=== PATIENT | female | born 1990 | race Hispanic/Latino ===

== ENCOUNTER 2022-01-14 09:25 | Emergency (ER) | payer OTHER ==
[~2022-01-14] VITALS: Ht 167.6 cm; Wt 99.8 kg
[2022-01-14] MEDS ORDERED: IBUP200C27 PO (09:34)
[2022-01-14] MEDS ORDERED: NS 1,000 ML IV ONE (10:15)
[2022-01-14] MEDS ORDERED: KETOROLAC 30 MG/ML 1ML VIAL IV ONE (10:20)
[2022-01-14 10:55] LABS: BASO # 0.1 10^3/uL (0.0-0.2); BASO % 0.4 % (0.0-1.0); EOS % 0.1 % (0.0-3.0); HEMATOCRIT 39.9 % (36.0-47.0); HEMOGLOBIN 12.8 g/dl (12.0-15.5); LYMPH # 1.9 10^3/uL (1.5-5.0); MEAN CORPUSCULAR HEMOGLOBIN 27.5 pg (27.0-33.0); MEAN CORPUSCULAR HGB CONC 32.1 g/dl (32.0-36.5); MEAN CORPUSCULAR VOLUME 85.6 fl (80.0-96.0); MONO # 0.7 10^3/uL (0.0-0.8); MONO % 4.9 % (2.0-8.0); NEUTROPHILS % 80.1 % (36.0-66.0); PLATELET COUNT, AUTOMATED 339 10^3/uL (150-450); RED BLOOD COUNT 4.66 10^6/uL (4.00-5.40); WHITE BLOOD COUNT 13.7 10^3/uL (4.0-10.0)
[2022-01-14 11:40] LABS: BLOOD UREA NITROGEN 9 MG/DL (7-18); CALCIUM LEVEL 9.4 MG/DL (8.5-10.1); CARBON DIOXIDE LEVEL 26 MEQ/L (21-32); CHLORIDE LEVEL 106 MEQ/L (98-107); CREATININE FOR GFR 0.86 MG/DL (0.55-1.30); GLOMERULAR FILTRATION RATE > 60.0 (>60); GLUCOSE, FASTING 99 MG/DL (70-100); POTASSIUM SERUM 3.8 MEQ/L (3.5-5.1); SODIUM LEVEL 137 MEQ/L (136-145); THYROID STIMULATING HORMONE 0.792 uIU/ML (0.358-3.740)
[2022-01-14 12:27] VITALS: BP 118/60
== END 2022-01-14 12:41 | disposition home or self-care (01) ==
LOC: M ED 09:25
DX: J06.9 Acute upper respiratory infection, unspecified (principal); R55 Syncope and collapse; J02.9 Acute pharyngitis, unspecified
CPT/HCPCS: 80048; 84443; 84484; 85025; 87486; 87581; 87633; 87798; 87880; 93005; 96361; 96374; 99284; J1885

== ENCOUNTER → 2023-08-04 | Outpatient (CLI) | payer OTHER ==
[~2023-08-04] MED LIST: IBUP200C27 PO
[2023-08-04 15:45] LABS: HEMATOCRIT 35.2 % (36.0-47.0); HEMOGLOBIN 11.4 g/dl (12.0-15.5); MEAN CORPUSCULAR HEMOGLOBIN 28.1 pg (27.0-33.0); MEAN CORPUSCULAR HGB CONC 32.4 g/dl (32.0-36.5); MEAN CORPUSCULAR VOLUME 86.7 fl (80.0-96.0); PLATELET COUNT, AUTOMATED 348 10^3/uL (150-450); RED BLOOD COUNT 4.06 10^6/uL (4.00-5.40); WHITE BLOOD COUNT 8.1 10^3/uL (4.0-10.0)
[2023-08-04 16:23] LABS: HIV 1&2 SCREEN NEGATIVE (NEGATIVE)
[2023-08-04 16:30] LABS: HEPATITIS C VIRUS ABY INDEX < 0.02 INDEX (<0.8)
[2023-08-04 17:03] LABS: GC DNA AMPLIFICATION NEGATIVE (NEGATIVE)
== END ==
LOC: M PLALAB 12:15
PROVIDERS: ATTEND Advanced Practice Midwife
DX: Z34.81 Encounter for supervision of other normal pregnancy, first trimester (principal)

== ENCOUNTER → 2023-09-24 | Outpatient (REF) | payer OTHER | LOC: M SFHCWAGY 12:17 | PROVIDERS: ATTEND Specialist | DX: R82.90 Unspecified abnormal findings in urine (principal) ==

== ENCOUNTER → 2023-10-04 | Outpatient (CLI) | payer OTHER | LOC: M WHC 09:44 | PROVIDERS: ATTEND Specialist | DX: Z34.82 Encounter for supervision of other normal pregnancy, second trimester (principal); Z3A.20 20 weeks gestation of pregnancy ==

== ENCOUNTER → 2023-11-08 | Outpatient (CLI) | payer OTHER ==
[2023-11-08 13:16] LABS: HEMATOCRIT 34.3 % (36.0-47.0); MEAN CORPUSCULAR HEMOGLOBIN 28.9 pg (27.0-33.0); MEAN CORPUSCULAR HGB CONC 32.1 g/dl (32.0-36.5); PLATELET COUNT, AUTOMATED 349 10^3/uL (150-450); RED BLOOD COUNT 3.81 10^6/uL (4.00-5.40); WHITE BLOOD COUNT 11.2 10^3/uL (4.0-10.0)
[2023-11-08 13:41] LABS: GLUCOSE CHALLENGE TEST 1 HOUR 101 MG/DL (LESS THAN 140)
[2023-11-08 14:16] LABS: HIV 1&2 SCREEN NEGATIVE (NEGATIVE)
[2023-11-08 14:24] LABS: HEPATITIS C VIRUS ABY INDEX < 0.02 INDEX (<0.8)
[2023-11-08 15:42] LABS: GC DNA AMPLIFICATION NEGATIVE (NEGATIVE)
== END ==
LOC: M PLALAB 08:36
PROVIDERS: ATTEND Obstetrics & Gynecology
DX: O99.212 Obesity complicating pregnancy, second trimester (principal); Z3A.00 Weeks of gestation of pregnancy not specified

== ENCOUNTER → 2023-11-18 | Outpatient (CLI) | payer OTHER | LOC: M WHC 15:12 | PROVIDERS: ATTEND Obstetrics & Gynecology | DX: O99.212 Obesity complicating pregnancy, second trimester (principal); O32.1XX0 Maternal care for breech presentation, not applicable or unspecified; Z3A.26 26 weeks gestation of pregnancy ==

== ENCOUNTER → 2024-01-24 | Outpatient (REF) | payer OTHER | LOC: M SFHCWAGY 13:03 | PROVIDERS: ATTEND Specialist | DX: Z34.93 Encounter for supervision of normal pregnancy, unspecified, third trimester (principal); Z3A.36 36 weeks gestation of pregnancy ==

== ENCOUNTER 2024-01-28 11:53 | Emergency (ER) | payer OTHER ==
[~2024-01-28] VITALS: Ht 167.6 cm; Wt 99.8 kg
[2024-01-28] MEDS ORDERED: PREN1CHW6 PO (12:06)
[2024-01-28] MEDS ORDERED: ROBI1CAP PO (12:06)
[2024-01-28 14:04] VITALS: BP 137/83; TEMP 97.3; O2SAT 99
[2024-02-01] MEDS ORDERED: OMEP-173 PO (07:28)
== END 2024-01-28 15:41 | disposition home or self-care (01) ==
LOC: M ED 11:53
DX: O98.519 Other viral diseases complicating pregnancy, unspecified trimester (principal); B34.8 Other viral infections of unspecified site; Z3A.00 Weeks of gestation of pregnancy not specified; Z11.52 Encounter for screening for COVID-19

== ENCOUNTER 2024-02-15 05:43 | Inpatient (IN) | payer OTHER ==
[2024-02-15] VITALS (12 sets, daily range): BP systolic 93–126; BP diastolic 53–73; TEMP 96.9; O2SAT 97–100
[~2024-02-15] VITALS: Ht 167.6 cm; Wt 101.8 kg
[~2024-02-15 05:43] MED LIST changes: +OMEP-173 PO; +PREN1CHW6 PO; +ROBI1CAP PO
[2024-02-15] MEDS ORDERED: HOME MED LIST COMPLETE! XX SCH (05:55)
[2024-02-15 06:25] LABS: HEMATOCRIT 32.8 % (36.0-47.0); HEMOGLOBIN 10.6 g/dl (12.0-15.5); MEAN CORPUSCULAR HEMOGLOBIN 26.8 pg (27.0-33.0); MEAN CORPUSCULAR HGB CONC 32.3 g/dl (32.0-36.5); PLATELET COUNT, AUTOMATED 375 10^3/uL (150-450); RED BLOOD COUNT 3.95 10^6/uL (4.00-5.40); WHITE BLOOD COUNT 9.9 10^3/uL (4.0-10.0)
[2024-02-15] MEDS: LACTATED RINGER'S 1000 ML IV STA (06:28)
[2024-02-15] MEDS: LR 1,000 ML IV SCH ×2 (06:50→08:40)
[2024-02-15] MEDS: ceFAZolin SOD 2 GM in IV 1 EA IV ONE (07:19)
[2024-02-15] MEDS: BICITRA 30ML SOLN UDC PO ONE (07:19)
[2024-02-15 07:35] LABS: HEPATITIS C VIRUS ABY INDEX 0.02 INDEX (<0.8)
[2024-02-15] MEDS ORDERED: fentaNYL 100 MCG/2 ML INJECTION As Ordered ONE (08:10)
[2024-02-15] MEDS ORDERED: MORPHINE PRES-FREE INJ 10 MG/10 ML VIAL As Ordered ONE (08:10)
[2024-02-15] MEDS ORDERED: PHENYLephrine 500MCG 5ML (100MCG/ML) SYRINGE As Ordered ONE (08:10)
[2024-02-15] MEDS ORDERED: OXYTOCIN 30UNITS IN 0.9% NaCl 500ML IV BAG As Ordered ONE (08:10)
[2024-02-15] MEDS ORDERED: ePHEDrine INJ 50MG/ML 1ML VIAL As Ordered ONE (08:10)
[2024-02-15 08:18] LABS: CORD GAS ABE V -5.5; CORD GAS HCO3 V 21.1 MMOL/L; CORD GAS O2 SAT V 75.8 %; CORD GAS PH V 7.289 UNITS; CORD GAS PO2 V 34.3 mmHg; CORD GAS SBC V 19.5 MMOL/L; CORD GAS TCO2 V 22.5 MMOL/L
[2024-02-15] MEDS ORDERED: KETOROLAC 60MG 2ML VIAL As Ordered ONE (08:19)
[2024-02-15 08:21] LABS: CORD GAS ABE A -4.9; CORD GAS HCO3 A 24.6 MMOL/L; CORD GAS O2 SAT A 53.6 %; CORD GAS PCO2 A 67.7 mmHg; CORD GAS PH A 7.179 UNITS; CORD GAS PO2 A 25.7 mmHg; CORD GAS SBC A 19.5 MMOL/L; CORD GAS TCO2 A 26.7 MMOL/L
[2024-02-15] MEDS ORDERED: RHOGAM 300MCG (1500IU) INJ IM SCH (08:40)
[2024-02-15] MEDS: SLF 3 ML SYR IV SCH (09:00)
[2024-02-15] MEDS: PRENATAL VITAMINS CHEWABLE TABLET PO SCH (09:00)
[2024-02-15] MEDS ORDERED: diphenhydrAMINE 50MG/ML VIAL IV PRN (09:05)
[2024-02-15] MEDS ORDERED: HYDROMORPHONE HCL 0.5 MG/ 0.5 ML SYRINGE IV PRN (09:05)
[2024-02-15] MEDS ORDERED: MEPERIDINE 25 MG/ML 1ML VIAL IV PRN (09:05)
[2024-02-15] MEDS ORDERED: fentaNYL 100 MCG/2 ML INJECTION IV PRN (09:05)
[2024-02-15] MEDS ORDERED: ONDANSETRON 4MG 2ML VIAL IV PRN (09:05)
[2024-02-15] MEDS ORDERED: **NOTE PATIENT COMMENT** MISC XX SCH (09:05)
[2024-02-15] MEDS ORDERED: NALOXONE INJ 0.4MG/1ML VIAL IV PRN ×2 (09:05)
[2024-02-15] MEDS ORDERED: oxyCODONE 5MG TAB PO PRN (09:05)
[2024-02-15] MEDS: METOCLOPRAMIDE INJ 10MG/2ML VIAL IV PRN (11:08)
[2024-02-15] MEDS: KETOROLAC 30 MG/ML 1ML VIAL IV SCH (15:07)
[2024-02-15] MEDS: ONDANSETRON 4MG 2ML VIAL IV PRN (15:22)
[2024-02-15] MEDS ORDERED: PROMETHAZINE 25MG/ML 1ML VIAL IV PRN (16:30)
[2024-02-15] MEDS: LR 500 ML IV ONE (17:46)
[2024-02-15] MEDS: LR 400 ML IV ONE (19:25)
[2024-02-16 02:00] VITALS: BP 102/60; O2SAT 98
[2024-02-16 05:57] VITALS: BP 105/58; O2SAT 98
[2024-02-16 06:09] LABS: MEAN CORPUSCULAR HGB CONC 32.3 g/dl (32.0-36.5); MEAN CORPUSCULAR VOLUME 83.8 fl (80.0-96.0); RED BLOOD COUNT 2.96 10^6/uL (4.00-5.40); WHITE BLOOD COUNT 11.6 10^3/uL (4.0-10.0)
[2024-02-16 06:16] LABS: HEMATOCRIT 24.8 % (36.0-47.0); PLATELET COUNT, AUTOMATED 259 10^3/uL (150-450)
[2024-02-16] MEDS: IBUPROFEN 800 MG TAB PO SCH (09:39)
[2024-02-16 10:00] VITALS: BP 111/59; O2SAT 98
[2024-02-16 14:00] VITALS: BP 101/55; O2SAT 98
[2024-02-16] MEDS: PERCOCET 5MG/325MG TAB PO PRN (16:57)
[2024-02-16 18:00] VITALS: BP 116/60; O2SAT 98
[2024-02-16 21:51] VITALS: BP 105/52; O2SAT 97
[2024-02-16] MEDS: DOCUSATE SODIUM 100MG CAPSULE PO PRN (22:03)
[2024-02-16] MEDS: SIMETHICONE 80MG CHEW TAB PO PRN (22:03)
[2024-02-17 01:53] VITALS: BP 101/59; O2SAT 100
[2024-02-17] MEDS: PERCOCET 5MG/325MG TAB PO PRN (05:50)
[2024-02-17 06:08] VITALS: BP 120/63; O2SAT 98
[2024-02-17] MEDS ORDERED: IBUP80TA PO (06:49)
[2024-02-17] MEDS ORDERED: OXYC1TAB23 PO (06:49)
[2024-02-17] MEDS ORDERED: COLA100C5 PO (06:49)
[2024-02-17] MEDS: MEASLES,MUMPS,RUBELLA VACCINE INJ (MMR-II) SC.IMMUN ONE (07:21)
== END 2024-02-17 11:50 | disposition home or self-care (01) | DRG 788 ==
LOC: M LDI 05:43 → M OBS 09:54
PROVIDERS: ADMIT Specialist; ATTEND Specialist
PROC: 0UB07ZZ Excision of Right Ovary, Via Natural or Artificial Opening (ICD-10-PCS; 2024-02-15)
PROC: 10D00Z1 Extraction of Products of Conception, Low, Open Approach (ICD-10-PCS; principal; 2024-02-15 07:30)
DX: O34.211 Maternal care for low transverse scar from previous cesarean delivery (principal); Z3A.39 39 weeks gestation of pregnancy; Z37.0 Single live birth; Z30.2 Encounter for sterilization

== ENCOUNTER → 2025-02-22 | Outpatient (CLI) | payer OTHER ==
[~2025-02-22] MED LIST changes: +COLA100C5 PO; +IBUP80TA PO; +OXYC1TAB23 PO
[2025-02-22 10:14] LABS: BASO # 0.1 10^3/uL (0.0-0.2); BASO % 0.7 % (0.0-1.0); EOS # 0.2 10^3/uL (0.0-0.5); EOS % 3.0 % (0.0-3.0); LYMPH # 2.1 10^3/uL (1.5-5.0); LYMPH % 29.3 % (24.0-44.0); MONO # 0.5 10^3/uL (0.0-0.8); MONO % 7.2 % (2.0-8.0); NEUTROPHILS # 4.2 10^3/uL (1.5-8.5); NEUTROPHILS % 59.4 % (36.0-66.0); PLATELET COUNT, AUTOMATED 319 10^3/uL (150-450)
[2025-02-22 10:41] LABS: C REACTIVE PROTEIN QUANTITATIV 0.61 MG/DL (<1.0)
[2025-02-22 10:42] LABS: ALT/SGPT 13 U/L (7.0-40); AST/SGOT 16 U/L (<34); CALCIUM LEVEL 9.2 MG/DL (8.5-10.1); CARBON DIOXIDE LEVEL 29 MMOL/L (20-31); CHLORIDE LEVEL 105 MMOL/L (98-107); CREATININE FOR GFR 0.64 MG/DL (0.55-1.30); GLOMERULAR FILTRATION RATE > 90.0 (>60); POTASSIUM SERUM 4.4 MMOL/L (3.5-5.1); SODIUM LEVEL 143 MMOL/L (136-145)
== END ==
LOC: M RAD 09:00
PROVIDERS: ATTEND Family Medicine
DX: R10.13 Epigastric pain (principal); R14.0 Abdominal distension (gaseous); R10.11 Right upper quadrant pain